=== PATIENT | male | born 1985 | race Caucasian/White ===

== ENCOUNTER 2016-09-22 01:10 | Emergency (ER) | payer MEDICAID, OTHER ==
[~2016-09-22] VITALS: Ht 182.9 cm; Wt 81.6 kg
[~2016-09-22 01:10] MED LIST: CELEXA20 MG PO; HUMALOG100 UNITS/ SUBQ; NEURONTIN300 MG PO; PERCOCET 325 MG1 TA4 PO; PRAVACHOL10 MG PO; PREDNISONE20 MG PO; SULFADIAZINE500 MG PO; SULFAZINE PO; TYLENOL #3 300/1 TAB PO; ZESTRIL10 MG PO; ZOFRAN ODT4 MG SL
[2016-09-22 01:13] VITALS: BP 148/85
--- NOTE | 2016-09-22 01:15 | NUR ---
PATIENT BROUGHT TO ER BED 06
--- NOTE | 2016-09-22 01:15 | NUR ---
Patient being evaluated by DR. HUNTER at bedside.
[2016-09-22] MEDS ORDERED: NACL 0.9% 500 ML IV ONE ×2 (01:16)
[2016-09-22] MEDS ORDERED: ONDANSETRON 4 MG/2 ML VIAL IVP ONE (01:20)
--- NOTE | 2016-09-22 01:20 | NUR ---
31Y/M PATIENT BIBA TO ED WITH C/O N/V AND RIGHT FLANK PAIN X3DAYS. HX:DM,CROHNS DISEASE; SKIN IS PINK/WARM/DRY; AAOX4 UNABLE TO AMBULATE AT THIS TIME; LUNGS CLEAR BL; HR EVEN AND REGULAR; PT DENIES ANY FEVER, CP, SOB, OR COUGH AT THIS TIME; PATIENT STATES PAIN OF 7/10 AT THIS TIME; VSS; PATIENT POSITIONED FOR COMFORT; HOB ELEVATED; BEDRAILS UP X2; BED DOWN. ER MD MADE AWARE OF PT STATUS.
[2016-09-22] MEDS ORDERED: fentaNYL 0.05 MG/ML VIAL IVP ONE (01:30)
[2016-09-22] MEDS ORDERED: INSULIN HUMAN REGULAR 100 UNITS/ML 10 ML VIAL IVP ONE (02:30)
[2016-09-22] MEDS ORDERED: NACL 0.9% 1,000 ML IV ONE (02:30)
--- NOTE | 2016-09-22 03:00 | NUR ---
Patient appears to be resting comfortably in bed. Vital Signs within normal limits. Respirations even and unlabored.
[2016-09-22] MEDS ORDERED: HYDROmorphone 1 MG/ML AMP IVP ONE (03:05)
--- NOTE | 2016-09-22 03:40 | NUR ---
Patient discharged with v/s stable. Written and verbal after care instructions given and explained. Patient alert, oriented and verbalized understanding of instructions. Ambulatory with steady gait. All questions addressed prior to discharge. ID band removed. Patient advised to follow up with PMD. Rx of SULFALAZINE, NAPROZYN 500 MG, ZOFRAN 4 MG given. Patient educated on indication of medication including possible reaction and side effects. Opportunity to ask questions provided and answered.
[2016-09-22 03:42] VITALS: BP 137/77
--- NOTE | 2016-09-28 19:44 | NUR ---
FOR CLARIFICATION; 0.9%NSS STARTED WIDE OPEN AT 0135AM END TIME 0208AM
== END 2016-09-22 03:40 | disposition home or self-care (01) ==
LOC: MED 01:10
DX: K50.90 Crohn's disease, unspecified, without complications (principal); E11.65 Type 2 diabetes mellitus with hyperglycemia; I10 Essential (primary) hypertension; E86.0 Dehydration; Z79.4 Long term (current) use of insulin; Z88.0 Allergy status to penicillin
CPT/HCPCS: 36415; 80053; 82009; 82948; 85025; 96360; 96361; 96374; 96375; 99285; J1170; J1815; J2405; J3010; J7030

== ENCOUNTER 2016-12-05 15:38 | Emergency (ER) | payer OTHER ==
[~2016-12-05] VITALS: Ht 182.9 cm; Wt 81.6 kg
[2016-12-05 16:04] VITALS: BP 138/77
--- NOTE | 2016-12-05 16:15 | NUR ---
PATIENT PRESENTS TO ED WITH DUE TO C/o pilonidal cyst-painful x 3 days hx---dm, crohn's, pilonidal cyst's .PT SAID I HAD VOMITTING ONE TIME LAST NIGHT, DENIES D; SKIN IS PINK/WARM/DRY; AAOX4 WITH EVEN AND STEADY GAIT; LUNGS CLEAR BL; HR EVEN AND REGULAR; PT DENIES ANY FEVER, CP, SOB, OR COUGH AT THIS TIME; PATIENT STATES PAIN OF 0/10 AT THIS TIME; PATIENT POSITIONED FOR COMFORT; HOB ELEVATED; BEDRAILS UP X2; BED DOWN. ER MD MADE AWARE OF PT STATUS.PT SAID IM TAKING WEEDS FOR PAIN AND IT HELPS ME.
--- NOTE | 2016-12-05 16:21 | NUR ---
DR. JUÁREZ AT BEDSIDE
[2016-12-05] MEDS ORDERED: LIDOCAINE 1% 500 MG/50 ML VIAL INJ ONE (16:25)
[2016-12-05] MEDS ORDERED: LIDOCAINE 1% ED 50 ML ONE (16:38)
--- NOTE | 2016-12-05 16:40 | NUR ---
DR. JUÁREZ AT BEDSIDE
--- NOTE | 2016-12-05 17:20 | NUR ---
REFUSED TETANUS AT THIS TIME---STATED HE DOES NOT WANT TO WAIT---PT SIGNED CONSENT FORM BUT REFUSED TO WAIT FOR MED
[2016-12-05 17:35] VITALS: BP 128/85
--- NOTE | 2016-12-05 17:37 | NUR ---
Patient discharged with v/s stable. Written and verbal after care instructions given and explained. Patient alert, oriented and verbalized understanding of instructions. Ambulatory with steady gait. All questions addressed prior to discharge. ID band removed. Patient advised to follow up with PMD. Rx of MOTRIN/LEVAQUIN given. Patient educated on indication of medication including possible reaction and side effects. Opportunity to ask questions provided and answered.
== END 2016-12-05 17:37 | disposition home or self-care (01) ==
LOC: MED 15:38
DX: L05.91 Pilonidal cyst without abscess (principal); E11.9 Type 2 diabetes mellitus without complications; I10 Essential (primary) hypertension; F12.90 Cannabis use, unspecified, uncomplicated; Z88.0 Allergy status to penicillin; Z79.4 Long term (current) use of insulin
CPT/HCPCS: 10080; 82948; 99283; J2001

== ENCOUNTER 2017-01-18 09:10 | Emergency (ER) | payer OTHER ==
[~2017-01-18] VITALS: Ht 182.9 cm; Wt 80.7 kg
[~2017-01-18 09:10] MED LIST changes: -CELEXA20 MG PO; +GABA300C PO; +HUM SUBQ; -HUMALOG100 UNITS/ SUBQ; -NEURONTIN300 MG PO; -PERCOCET 325 MG1 TA4 PO; +PRAV10TA21 PO; -PRAVACHOL10 MG PO; +PRED20TA5 PO; -PREDNISONE20 MG PO; +SULF500E8 PO; -SULFADIAZINE500 MG PO; -SULFAZINE PO; -TYLENOL #3 300/1 TAB PO; -ZESTRIL10 MG PO; -ZOFRAN ODT4 MG SL
[2017-01-18 09:18] VITALS: BP 127/73
--- NOTE | 2017-01-18 09:31 | NUR ---
Patient ambulated to bed 06.
[2017-01-18] MEDS ORDERED: NACL 0.9% 1,000 ML IV SCH (09:34)
[2017-01-18] MEDS ORDERED: ONDANSETRON 4 MG/2 ML VIAL IVP ONE (09:35)
[2017-01-18] MEDS ORDERED: FAMOTIDINE 20 MG/2 ML VIAL IVP ONE (09:35)
--- NOTE | 2017-01-18 09:35 | NUR ---
Dr. Zamora evaluating patient at bedside.
[2017-01-18 09:52] LABS: BASOPHILS # (AUTO) 0.1 K/uL (0.00-0.22); EOSINOPHILS # (AUTO) 0.3 K/uL (0-0.4); EOSINOPHILS % (AUTO) 3.8 % (0.0-4.0); HEMATOCRIT 41.7 % (36-52); HEMOGLOBIN 14.2 g/dL (12.0-18.0); LYMPHOCYTES # (AUTO) 1.3 K/uL (2.0-11.5); LYMPHOCYTES % (AUTO) 18.1 % (20.5-51.1); MEAN CORPUSCULAR HEMOGLOBIN 30 pg (27-31); MEAN CORPUSCULAR HGB CONC 34 g/dL (33-37); MEAN CORPUSCULAR VOLUME 88 fL (80-94); MONOCYTES # (AUTO) 0.2 K/uL (0.8-1.0); MONOCYTES % (AUTO) 3.1 % (1.7-9.3); NEUTROPHILS # (AUTO) 5.5 K/uL (1.8-7.7); PLATELET COUNT (AUTO) 250 K/uL (140-450); RED BLOOD CELL COUNT(AUTO) 4.74 MIL/uL (4.20-6.10); RED CELL DISTRIBUTION WIDTH 12.5 % (11.6-13.7); WHITE BLOOD COUNT (AUTO) 7.4 K/uL (4.8-10.8)
--- NOTE | 2017-01-18 10:06 | NUR ---
PATIENT PRESENTS TO ED WITH c/o throat , mouth ,nasal pain x 5 days recent dc from admission at [facility], dx crohn's flare;hx-crohn's, dm rx-flagyl, cipro, levaquin, norco, ibuprofen, lantus, humalog .DENIES N/V/D; SKIN IS PINK/WARM/DRY; AAOX4 WITH EVEN AND STEADY GAIT; LUNGS CLEAR BL; HR EVEN AND REGULAR; PT DENIES ANY FEVER, CP, SOB, OR COUGH AT THIS TIME; PATIENT STATES PAIN OF 8/10 AT THIS TIME;PATIENT POSITIONED FOR COMFORT; HOB ELEVATED; BEDRAILS UP X2; BED DOWN.
[2017-01-18 10:18] LABS: ALBUMIN 3.8 g/dL (3.4-5.0); CALCIUM 8.9 mg/dL (8.5-10.1); CARBON DIOXIDE 29.4 mmol/L (21-32); POTASSIUM 4.4 mmol/L (3.5-5.1); TOTAL BILIRUBIN 0.6 mg/dL (0.0-1.0); TOTAL PROTEIN, SERUM 7.5 g/dL (6.4-8.2)
[2017-01-18 10:38] LABS: APPEARANCE,URINE CLEAR (CLEAR); BILIRUBIN,URINE NEGATIVE (NEGATIVE); BLOOD, URINE NEGATIVE (NEGATIVE); COLOR,URINE YELLOW (YELLOW); LEUKOCYTE ESTERASE ,URINE NEGATIVE (NEGATIVE); NITRITE, URINE NEGATIVE (NEGATIVE); PH,URINE 5.5 (5.0-9.0); PROTEIN,URINE NEGATIVE (NEGATIVE); UGLUCOSE 3+ (NEGATIVE); UROBILINOGEN,URINE 0.2 EU/dL (0.2 - 1)
[2017-01-18 10:46] VITALS: BP 118/72
--- NOTE | 2017-01-18 10:46 | NUR ---
Patient discharged with v/s stable. Written and verbal after care instructions given and explained.Patient alert, oriented and verbalized understanding of instructions. Ambulatory with steady gait. All questions addressed prior to discharge. ID band removed. Patient advised to follow up with PMD. Rx of NORCO given. Patient educated on indication of medication including possible reaction and side effects. Opportunity to ask questions provided and answered.
[2017-01-18 10:49] LABS: AMPHETAMINE, URINE NEG. ng/ml (NEG <=1000); BARBITURATE, URINE NEG. ng/ml (NEG <=200); BENZODIAZEPINE, URINE NEG. ng/mL (NEG <=200); CANNABINOID, URINE NEG. ng/mL (NEG <=50); COCAINE, URINE NEG. ng/mL (NEG <=300); OPIATE, URINE NEG. ng/mL (NEG <=2000); PHENCYCLIDINE SCREEN,URINE NEG. ng/mL (NEG <=25)
[2017-01-18 10:52] LABS: BACTERIA,URINE 0-2 (RARE) /HPF (None Seen); RBC,URINE 0-5 (RARE) /HPF (0-5); SQUAMOUS EPITHELIAL CELL,UR 0-3 (FEW) /LPF (0-3 (FEW)); WBC,URINE 0-5 (RARE) /HPF (0-5)
== END 2017-01-18 10:46 | disposition home or self-care (01) ==
LOC: MED 09:10
DX: J02.9 Acute pharyngitis, unspecified (principal); Z88.0 Allergy status to penicillin; E11.9 Type 2 diabetes mellitus without complications; K21.9 Gastro-esophageal reflux disease without esophagitis; I10 Essential (primary) hypertension
CPT/HCPCS: 36415; 80053; 80305; 81001; 82150; 83690; 85025; 96361; 96374; 96375; 99284; J2405; J3490; J7030

== ENCOUNTER 2017-05-17 10:25 | Emergency (ER) | payer OTHER ==
[~2017-05-17] VITALS: Ht 182.9 cm; Wt 86.6 kg
[2017-05-17 10:29] VITALS: BP 141/81
--- NOTE | 2017-05-17 10:35 | NUR ---
Patient ambulated to bed 4. RN evaluating patient at bedside.
--- NOTE | 2017-05-17 10:36 | NUR ---
32/M BIB C/O R ABD & LOWER BACK PAIN x ONE WEEK. HX: CHRON'S DISEASE AND DM I MEDS: INSULIN HUMALOG, PREDNISONE, FLAGYL AND NORCO. PT STS N/V BUT DENIES DIARRHEA; SKIN IS PINK/WARM/DRY; AAOX4 WITH EVEN AND STEADY GAIT; LUNGS CLEAR BL; HR EVEN AND REGULAR. PATIENT STATES SHARP PAIN OF 8/10 AT THIS TIME; PATIENT POSITIONED FOR COMFORT; HOB ELEVATED; BEDRAILS UP X2; BED DOWN. ER MD MADE AWARE OF PT STATUS.
[2017-05-17] MEDS ORDERED: NACL 0.9% 1,000 ML IV ONE (10:40)
--- NOTE | 2017-05-17 10:48 | NUR ---
LAB AT BEDSIDE.
[2017-05-17 10:55] LABS: BASOPHILS # (AUTO) 0.3 K/uL (0.00-0.22); BASOPHILS % (AUTO) 4.7 % (0.0-2.0); EOSINOPHILS # (AUTO) 0.3 K/uL (0-0.4); EOSINOPHILS % (AUTO) 4.4 % (0.0-4.0); HEMATOCRIT 42.5 % (36-52); HEMOGLOBIN 14.4 g/dL (12.0-18.0); LYMPHOCYTES # (AUTO) 1.9 K/uL (2.0-11.5); LYMPHOCYTES % (AUTO) 28.3 % (20.5-51.1); MEAN CORPUSCULAR HEMOGLOBIN 30 pg (27-31); MEAN CORPUSCULAR HGB CONC 34 g/dL (33-37); MEAN CORPUSCULAR VOLUME 89 fL (80-94); MONOCYTES # (AUTO) 0.4 K/uL (0.8-1.0); NEUTROPHILS # (AUTO) 3.9 K/uL (1.8-7.7); NEUTROPHILS % (AUTO) 56.6 % (42.2-75.2); PLATELET COUNT (AUTO) 224 K/uL (140-450); RED BLOOD CELL COUNT(AUTO) 4.79 MIL/uL (4.20-6.10); RED CELL DISTRIBUTION WIDTH 12.6 % (11.6-13.7); WHITE BLOOD COUNT (AUTO) 6.8 K/uL (4.8-10.8)
--- NOTE | 2017-05-17 10:55 | NUR ---
Patient being evaluated by DR DE at bedside.
[2017-05-17] MEDS ORDERED: ONDANSETRON 4 MG/2 ML VIAL IVP ONE (11:00)
[2017-05-17] MEDS ORDERED: HYDROmorphone 1 MG/ML AMP IVP ONE (11:00)
[2017-05-17 11:08] LABS: ANION GAP 8.7 (8-16); CARBON DIOXIDE 31.3 mmol/L (21-32); CREATININE 0.9 mg/dL (0.7-1.3)
[2017-05-17 11:14] LABS: ALBUMIN 3.9 g/dL (3.4-5.0); TOTAL BILIRUBIN 0.4 mg/dL (0.0-1.0)
--- NOTE | 2017-05-17 11:53 | NUR ---
Patient appears to be resting comfortably in bed. ABD PAIN 5/10,BP 140/71; DENIES HEADACHE OR DIZZINESS AT THIS TIME. Respirations even and unlabored.WILL CONTINUE TO MONITOR.
[2017-05-17] MEDS ORDERED: METF1000 PO (12:07)
[2017-05-17] MEDS ORDERED: BENA40TA PO (12:08)
[2017-05-17] MEDS ORDERED: HYDR12.51 PO (12:08)
[2017-05-17] MEDS ORDERED: LEVO137T2 PO (12:09)
[2017-05-17] MEDS ORDERED: ATOR40TA PO (12:09)
[2017-05-17] MEDS ORDERED: NOVN SUBQ (12:11)
--- NOTE | 2017-05-17 12:56 | NUR ---
Cecilia elliott in ED - 05/17/17 at 1329 by [email or web address] PT TAKEN TO X RAY VIA W/C, ACCOMPANIES BY STATION AGENT.
--- NOTE | 2017-05-17 12:56 | NUR ---
PT TAKEN TO X RAY VIA W/C, ACCOMPANIED BY DOOR TENDER.
--- NOTE | 2017-05-17 13:07 | NUR ---
BACK FROM X RAY.
[2017-05-17 14:08] VITALS: BP 129/73
--- NOTE | 2017-05-17 14:08 | NUR ---
Patient discharged with BP129/73; DENIES HEADACHE OR DIZINESS AT THIS TIME. Written and verbal after care instructions given and explained. Patient alert, oriented and verbalized understanding of instructions. Ambulatory with steady gait. All questions addressed prior to discharge. ID band removed. Patient advised to follow up with PMD. Rx of NORCO& PREDNISONE given. Patient educated on indication of medication including possible reaction and side effects. Opportunity to ask questions provided and answered.
== END 2017-05-17 14:08 | disposition home or self-care (01) ==
LOC: MED 10:25
DX: K50.90 Crohn's disease, unspecified, without complications (principal); E11.9 Type 2 diabetes mellitus without complications; K21.9 Gastro-esophageal reflux disease without esophagitis; Z88.6 Allergy status to analgesic agent; Z88.0 Allergy status to penicillin; Z88.8 Allergy status to other drugs, medicaments and biological substances
CPT/HCPCS: 36415; 74000; 80053; 82948; 83690; 85025; 93005; 96361; 96374; 96375; 99285; J1170; J2405; J7030

== ENCOUNTER 2017-07-14 10:58 | Inpatient (IN) | payer OTHER ==
[~2017-07-14] VITALS: Ht 182.9 cm; Wt 86.2 kg
[~2017-07-14 10:58] MED LIST changes: +ATOR40TA PO; +BENA40TA PO; +HYDR12.51 PO; +LEVO137T2 PO; +METF1000 PO; +NOVN SUBQ
[2017-07-14 11:07] VITALS: BP 145/84
--- NOTE | 2017-07-14 11:11 | NUR ---
AAO PT BEING EVALUATED BY DR ANTOINE AT BEDSIDE
--- NOTE | 2017-07-14 11:12 | NUR ---
PT PRESENTS TO ER FOR EVALUATION OF ABSCESS TO TAILBONE. HX DM, HTN, CROHN'S, HYPOTHYROIDISM, HYPERLIPIDEMIA.DENIES N/V/D; SKIN IS PINK/WARM/DRY; AAOX4 WITH EVEN AND STEADY GAIT; LUNGS CLEAR BL; HR EVEN AND REGULAR; PT DENIES ANY FEVER, CP, SOB, OR COUGH AT THIS TIME; PATIENT STATES PAIN OF 6/10 AT THIS TIME; VSS; PATIENT POSITIONED FOR COMFORT; HOB ELEVATED; BEDRAILS UP X2; BED DOWN. ER MD MADE AWARE OF PT STATUS.
[2017-07-14] MEDS ORDERED: CLINDAMYCIN 600 MG in DEXTROSE 5% 50 ML IV ONE (11:20)
[2017-07-14] MEDS ORDERED: metroNIDAZOLE 500 MG/NS PREMIX 100 ML IV ONE (11:20)
[2017-07-14] MEDS ORDERED: NACL 0.9% 1,000 ML IV ONE (11:20)
[2017-07-14 11:31] LABS: BASOPHILS # (AUTO) 0.2 K/uL (0.00-0.22); BASOPHILS % (AUTO) 1.9 % (0.0-2.0); EOSINOPHILS # (AUTO) 0.2 K/uL (0-0.4); EOSINOPHILS % (AUTO) 1.4 % (0.0-4.0); HEMATOCRIT 42.9 % (36-52); HEMOGLOBIN 14.2 g/dL (12.0-18.0); LYMPHOCYTES # (AUTO) 1.2 K/uL (2.0-11.5); LYMPHOCYTES % (AUTO) 9.9 % (20.5-51.1); MEAN CORPUSCULAR HEMOGLOBIN 29 pg (27-31); MEAN CORPUSCULAR HGB CONC 33 g/dL (33-37); MEAN CORPUSCULAR VOLUME 87 fL (80-94); MONOCYTES # (AUTO) 0.6 K/uL (0.8-1.0); MONOCYTES % (AUTO) 4.9 % (1.7-9.3); NEUTROPHILS # (AUTO) 9.4 K/uL (1.8-7.7); NEUTROPHILS % (AUTO) 81.9 % (42.2-75.2); PLATELET COUNT (AUTO) 300 K/uL (140-450); RED BLOOD CELL COUNT(AUTO) 4.91 MIL/uL (4.20-6.10); RED CELL DISTRIBUTION WIDTH 12.3 % (11.6-13.7); WHITE BLOOD COUNT (AUTO) 11.6 K/uL (4.8-10.8)
[2017-07-14] MEDS ORDERED: INSULIN HUMAN REGULAR 100 UNITS/ML 10 ML VIAL IVP ONE (11:35)
[2017-07-14] MEDS ORDERED: MORPHINE SULFATE 4 MG/ML SYR IVP ONE (11:40)
[2017-07-14] MEDS ORDERED: ONDANSETRON 4 MG/2 ML VIAL IVP ONE (11:40)
[2017-07-14 11:42] LABS: ANION GAP 14.1 (8-16); CARBON DIOXIDE 28.4 mmol/L (21-32); CREATININE 1.1 mg/dL (0.7-1.3); POTASSIUM 4.5 mmol/L (3.5-5.1)
[2017-07-14 11:46] LABS: PROTHROMBIN TIME 10.9 secs (10.8-13.4)
[2017-07-14 11:48] LABS: TOTAL BILIRUBIN 0.6 mg/dL (0.0-1.0)
[2017-07-14] MEDS ORDERED: CLINDAMYCIN 600 MG/4 ML VIAL ONE (11:54)
--- NOTE | 2017-07-14 11:55 | NUR ---
DR ANTOINE NOTIFIED OF PT REFUSE NOVOLIN R D/T ALLERGY PER PT
--- NOTE | 2017-07-14 12:17 | NUR ---
PT INFUSED OWN INSULIN THROUGH INPLANT IV PUMP
--- NOTE | 2017-07-14 12:43 | NUR ---
Patient will be admitted to care of DR AUSTIN. Admited to MS. Will go to room 120A. Belongings list completed. Report to STEFANI MAGALLANES.
[2017-07-14 12:45] VITALS: BP 126/79
--- NOTE | 2017-07-14 12:45 | NUR ---
RECEIVED PATIENT FROM ER. PATIENT AWAKE, ALERT AND ORIENTED. PATIENT ON ROOM AIR. NO S/S OF DISTRESS NOTED. PILONIDAL ABSCESS NOTED. SKIN IS INTACT. NO DRAINAGE NOTED. IV LINE NOTED TO THE RIGHT AC WITH IVF INFUSING WELL. BED LOWERED WITH CALL LIGHT WITHIN REACH. WILL CONTINUE TO MONITOR
--- NOTE | 2017-07-14 13:00 | NUR ---
PAGED DR LOVELL
[2017-07-14] MEDS: NACL 0.9% 1,000 ML IV SCH (13:17)
[2017-07-14] MEDS ORDERED: LORazepam 2 MG/ML VIAL IVP PRN (13:20)
[2017-07-14] MEDS ORDERED: INSULIN LISPRO SLIDING SCALE 100 UNITS/ML VIAL SUBQ PRN (13:25)
[2017-07-14] MEDS ORDERED: DEXTROSE 50% 50 ML SYR IVP PRN (13:25)
[2017-07-14] MEDS: MORPHINE SULFATE 2 MG/ML SYR IVP PRN ×2 (13:32→17:35)
[2017-07-14] MEDS ORDERED: LEVOFLOXACIN 500 MG/D5W PREMIX 100 ML IV SCH (15:00)
--- NOTE | 2017-07-14 15:30 | NUR ---
PAGED DR LOVELL AGAIN. WAITING FOR CALL BACK
[2017-07-14] MEDS: HYDROcodone/APAP 5/325 MG 1 TAB TAB PO PRN ×2 (15:59→20:39)
[2017-07-14 16:00] VITALS: BP 131/71
[2017-07-14] MEDS: BLOOD GLUCOSE MONITORING 1 DEV DEV FS SCH ×2 (16:32→20:45)
[2017-07-14] MEDS ORDERED: ACETAMINOPHEN 325 MG TAB PO PRN (18:00)
--- NOTE | 2017-07-14 18:30 | NUR ---
MADE DR BURTON AWARE OF PATIENT'S WORSENING PAIN IN HIS PILONIDAL ABSCESS THAT IS UNRELIEVED BY MORPHINE AND NORCO. ORDERS RECEIVED
[2017-07-14] MEDS: HYDROmorphone PFS 2 MG/ML SYR IVP PRN ×2 (18:42→23:02)
[2017-07-14 18:43] VITALS: BP 140/80
[2017-07-14] MEDS: ONDANSETRON 4 MG/2 ML VIAL IVP PRN (18:49)
--- NOTE | 2017-07-14 19:26 | NUR ---
PATIENT REPORT GIVEN AT BEDSIDE. PATIENT ENDORSED IN STABLE CONDITION
--- NOTE | 2017-07-14 19:30 | NUR ---
RECEIVED REPORT FROM AM NURSE. PT RESTING IN BED, AOX4, AMBULATORY, ABLE TO VERBALIZE NEEDS. PT DENIES CHEST PAIN, SOB OR S/S OF ACUTE DISTRESS. PILONIDAL ABSCESS NOTED, REDNESS NOTED, TENDER. PT C/O BREAKTHROUGH PAIN. SEE PAIN ASSESSMENT. WILL MEDICATE ORDERED. IV ACCESS ASYMPTOMATIC, PATENT AND INTACT. IVF INFUSING WELL. DISCUSSED AND REVIEWED PLAN OF CARE WITH PT. PT VERBALIZED UNDERSTANDING. ALL NEEDS MET. SAFETY MEASURES ENSURED. CALL LIGHT WITHIN REACH. WILL CONTINUE TO MONITOR.
[2017-07-14 20:00] VITALS: BP 138/81
[2017-07-14] MEDS: metroNIDAZOLE 500 MG/NS PREMIX 100 ML IV SCH (20:40)
--- NOTE | 2017-07-14 20:45 | NUR ---
BLOOD SUGAR 245, PT IS ADMINISTERING USING HIS OWN INSULIN PUMP, NO INSULIN COVERAGE NEEDED. ADMINISTERED DUE MED FLAGYL IVPB WITH EDUCATION. PT C/O UNRELIEVED PAIN, ADMINISTERED NORCO PO PRN, WILL MONITOR. ALL NEEDS MET. IVPB INFUSING WELL. SAFETY MEASURES ENSURED. CALL LIGHT WITHIN REACH. WILL CONTINUE TO MONITOR.
--- NOTE | 2017-07-14 23:05 | NUR ---
CALLED DR LOVELL, DISCUSSED PT DX PILONIDAL ABSCESS AND SURGICAL CONSULT, ORDERS RECEIVED TO KEEP PT NPO AT MIDNIGHT AND THAT MD WILL SEE PT TOMORROW. DISCUSSED THAT PT IS EXPRESSING THAT HE WANTS TO HAVE I&D BECAUSE HE HAS A FLIGHT TO [place] ON 07/16/17, MD STATED THAT HE CANNOT GO ON A FLIGHT IF HE GOES AFTER SURGERY. MADE PT AWARE, PT AGREED TO SEE MD TOMORROW. PT C/O PAIN. SEE PAIN ASSESSMENT. ADMINISTERED DILAUDID IVP PRN ORDERED WITH EDUCATION. PT VERBALIZED UNDERSTANDING, TOLERATED MED WELL. ALL NEEDS MET. IVF INFUSING WELL. SAFETY MEASURES ENSURED. CALL LIGHT WITHIN REACH. WILL CONTINUE TO MONITOR.
[2017-07-15] VITALS: BP 116/74
[2017-07-15] MEDS: NACL 0.9% 1,000 ML IV SCH (02:37)
[2017-07-15] MEDS: HYDROmorphone PFS 2 MG/ML SYR IVP PRN ×2 (03:50→08:10)
[2017-07-15] MEDS: metroNIDAZOLE 500 MG/NS PREMIX 100 ML IV SCH ×2 (04:05→13:00)
--- NOTE | 2017-07-15 04:06 | NUR ---
PT C/O PAIN. SEE PAIN ASSESSMENT. ADMINISTERED DILAUDID IVP PRN ORDERED WITH EDUCATION. ADMINISTERED DUE MED FLAGYL IVPB WITH EDUCATION. PT VERBALIZED UNDERSTANDING. PT TOLERATED WELL. ALL NEEDS MET. IVPB INFUSING WELL. SAFETY MEASURES ENSURED. CALL LIGHT WITHIN REACH. WILL CONTINUE TO MONITOR.
[2017-07-15] MEDS: HYDROcodone/APAP 5/325 MG 1 TAB TAB PO PRN (05:59)
[2017-07-15] MEDS: BLOOD GLUCOSE MONITORING 1 DEV DEV FS SCH ×2 (06:02→11:43)
--- NOTE | 2017-07-15 06:02 | NUR ---
BLOOD GLUCOSE 109, NO INSULIN COVERAGE NEEDED. PT C/O BREAKTHROUGH PAIN. SEE PAIN ASSESSMENT. ADMINISTERED NORCO PO PRN WITH EDUCATION. ALL NEEDS MET. IVF INFUSING WELL. SAFETY MEASURES ENSURED. CALL LIGHT WITHIN REACH. WILL CONTINUE TO MONITOR.
[2017-07-15 06:25] LABS: BASOPHILS # (AUTO) 0.2 K/uL (0.00-0.22); BASOPHILS % (AUTO) 2.5 % (0.0-2.0); EOSINOPHILS # (AUTO) 0.4 K/uL (0-0.4); EOSINOPHILS % (AUTO) 4.2 % (0.0-4.0); HEMATOCRIT 39.2 % (36-52); HEMOGLOBIN 13.4 g/dL (12.0-18.0); LYMPHOCYTES # (AUTO) 1.7 K/uL (2.0-11.5); MEAN CORPUSCULAR HEMOGLOBIN 30 pg (27-31); MEAN CORPUSCULAR HGB CONC 34 g/dL (33-37); MEAN CORPUSCULAR VOLUME 89 fL (80-94); MONOCYTES # (AUTO) 0.8 K/uL (0.8-1.0); MONOCYTES % (AUTO) 8.4 % (1.7-9.3); NEUTROPHILS # (AUTO) 6.1 K/uL (1.8-7.7); NEUTROPHILS % (AUTO) 66.9 % (42.2-75.2); PLATELET COUNT (AUTO) 244 K/uL (140-450); RED BLOOD CELL COUNT(AUTO) 4.43 MIL/uL (4.20-6.10); RED CELL DISTRIBUTION WIDTH 12.3 % (11.6-13.7); WHITE BLOOD COUNT (AUTO) 9.2 K/uL (4.8-10.8)
[2017-07-15 07:01] LABS: ALBUMIN 3.2 g/dL (3.4-5.0); ANION GAP 10.1 (8-16); CARBON DIOXIDE 30.7 mmol/L (21-32); CREATININE 0.9 mg/dL (0.7-1.3); MAGNESIUM 1.8 mg/dL (1.8-2.4); POTASSIUM 3.8 mmol/L (3.5-5.1); TOTAL BILIRUBIN 0.2 mg/dL (0.0-1.0)
--- NOTE | 2017-07-15 07:15 | NUR ---
ENDORSED PLAN OF CARE TO AM NURSE. CONDITION STABLE.
--- NOTE | 2017-07-15 07:20 | NUR ---
ENDORSEMENT RECEIVED FROM LICENSED PROFESSIONAL COUNSELOR NURSE. PATIENT'S RESPIRATION EVEN, UNLABOR. SKIN DRY AND WARM. CALL LIGHT WITHIN REACH. WILL CONTINUE TO MONITOR
[2017-07-15 08:00] VITALS: BP 117/51
--- NOTE | 2017-07-15 08:17 | NUR ---
DR AUSTIN PAGED TO CLARIFY USE OF PT'S OWN INSULIN PUMP AND IVF DURING NPO.
[2017-07-15] MEDS: ONDANSETRON 4 MG/2 ML VIAL IVP PRN (08:20)
[2017-07-15] MEDS ORDERED: DEXT 5% / NACL 0.9% 1,000 ML IV SCH (08:35)
--- NOTE | 2017-07-15 08:43 | NUR ---
DR AUSTIN WAS NOTIFIED INSULIN PUMP INFUSING 1 UNIT/HR, OK FOR PATIENT TO CONTINUE. WILL GIVE D5NS PER ORDER.
--- NOTE | 2017-07-15 10:06 | NUR ---
PATIENT HAS BEEN SCREENED AND CATEGORIZED MODERATE NUTRITION RISK. PATIENT WILL BE SEEN WITHIN 3-5 DAYS OF ADMISSION. 07/17/17-07/19/[address]
[2017-07-15] MEDS ORDERED: HYDROmorphone PFS 2 MG/ML SYR IVP SCH (10:10)
[2017-07-15] MEDS ORDERED: LIDOCAINE 1% 500 MG/50 ML VIAL INJ SCH (10:10)
--- NOTE | 2017-07-15 10:30 | NUR ---
DR LOVELL AT BEDSIDE DOING I&D. CONSENT SIGNED AND WITNESSED. PREMEDICATED WITH DILAUDID PER ORDER.
--- NOTE | 2017-07-15 12:10 | NUR ---
CM NOTE INITIAL REVIEW FAXED TO [facility] [phone] CARLITA # [phone]
[2017-07-15] MEDS ORDERED: ONDA4TAB PO (12:57)
--- NOTE | 2017-07-15 13:20 | NUR ---
PATIENT REFUSED FLAGYL, WANTS TO GO HOME NOW.
--- NOTE | 2017-07-15 14:00 | NUR ---
DISCHARGE INSTRUCTION WAS GIVEN. PATIENT VERBALIZED UNDERSTANDING. IV WAS REMOVED WITH CATHETER TIP INTACT. PATIENT TOLERATED WELL. ID BAND WAS REMOVED. DRESSING WAS CHANGED, NO ACTIVE BLEEDING SEEN. PACKING IS INPLACED. WOUND CARE INSTRUCTION WAS GIVEN WITH SUPPLIES. PATIENT IS STABLE AT THIS TIME. PATIENT WAS ESCORTED OUT WITH STAFF, STEADY GAIT. Addendum: 07/15/17 at 1415 by Maylin Garzon RN PATIENT VERBALIZED HIS KNOWS HOW TO CHANGE HIS DRESSING.
== END 2017-07-15 14:00 | disposition home or self-care (01) | DRG 383 ==
LOC: MED 10:58 → MTU 12:09
PROVIDERS: ADMIT Internal Medicine; ATTEND Internal Medicine
PROC: 0H98XZZ Drainage of Buttock Skin, External Approach (ICD-10-PCS; principal; 2017-07-15)
DX: L05.01 Pilonidal cyst with abscess (principal); R65.10 Systemic inflammatory response syndrome (SIRS) of non-infectious origin without acute organ dysfunction; K50.90 Crohn's disease, unspecified, without complications; E11.9 Type 2 diabetes mellitus without complications; E78.5 Hyperlipidemia, unspecified; E03.9 Hypothyroidism, unspecified; Z88.6 Allergy status to analgesic agent; Z88.1 Allergy status to other antibiotic agents; Z88.0 Allergy status to penicillin; Z88.8 Allergy status to other drugs, medicaments and biological substances
CPT/HCPCS: 36415; 80053; 82948; 83735; 85025; 85610; 85730; 87070; 87075; 87081; 87205; 96365; 96375; 99285; J1170; J1815; J1956; J2001; J2270; J2405; J3490; J7030; J7042